=== PATIENT | male | born 1985 ===

== ENCOUNTER → 2017-05-05 | Outpatient (REF) | payer OTHER | LOC: M LAB REF 12:39 | PROVIDERS: ATTEND Internal Medicine Nephrology | DX: N28.9 Disorder of kidney and ureter, unspecified (principal) ==

== ENCOUNTER → 2021-06-24 | Outpatient (REF) | payer OTHER | LOC: M LAB REF 17:19 | PROVIDERS: ATTEND Internal Medicine Nephrology | DX: Z79.899 Other long term (current) drug therapy (principal); N08 Glomerular disorders in diseases classified elsewhere; Z79.1 Long term (current) use of non-steroidal anti-inflammatories (NSAID) ==